=== PATIENT | male | born 1970 | race Asian ===

== ENCOUNTER 2017-04-06 18:00 | Emergency (ER) | payer BC ==
[~2017-04-06] VITALS: Ht 172.7 cm; Wt 66.2 kg
[2017-04-06 18:00] VITALS: BP 140/103; PULSE 76; RESP 17; TEMP 98; O2SAT 100
--- NOTE | 2017-04-06 18:18 | NUR ---
Placed in room 4 . To gown for exam. Side rails up. Report given to ignacio kaufman
--- NOTE | 2017-04-06 18:37 | NUR ---
Patient is here with . Patient presents with headache on and off x 4 days with nausea. Denies any vomiting, dizziness, or light sensitivity. Patient is ALOC x 4. Pain of 4/10. No other complaints/injuries per patient or as noted. Will continue to monitor.
--- NOTE | 2017-04-06 19:05 | NUR ---
Report recieved from Anais MAURER. Patient appears stable. Vital signs within normal limits. at bedside. Will assume care at this time.
[2017-04-06] MEDS ORDERED: HYDROcodone/ACETAMIN 5-325 MG TAB (NORCO/ VICODIN) PO ONE (19:15)
--- NOTE | 2017-04-06 19:49 | NUR ---
Patient transported off unit for head CT by radiology staff.
--- NOTE | 2017-04-06 19:57 | NUR ---
Patient returned to unit from CT by radiology. Patient stable. Will continue to monitor.
--- NOTE | 2017-04-06 20:10 | NUR ---
Patient resting quietly. No acute distress noted. Vital signs within normal range.
[2017-04-06 20:40] VITALS: BP 146/98; PULSE 76; RESP 17; TEMP 98; O2SAT 100
--- NOTE | 2017-04-06 20:40 | NUR ---
Patient given written and verbal discharge instructions and verbalizes understanding. ER MD discussed with patient the results and treatment provided. Patient in stable condition. ID arm band removed. Rx of [place] given. Patient educated on pain management and to follow up with PMD. Pain Scale 2/10 tolerable for patient. Opportunity for questions provided and answered.
== END 2017-04-06 20:40 | disposition home or self-care (01) ==
LOC: SED 18:00
DX: R51 Headache (principal)
CPT/HCPCS: 70450-TC; 99284